=== PATIENT | female | born 1980 | race Caucasian/White ===

== ENCOUNTER 2016-12-03 09:35 | Emergency (ER) | payer MEDICARE, MEDICAID ==
--- NOTE | 2016-12-03 11:29 | UC ---
Throat Pain/Nasal [place] HPI - HPI Summary HPI Summary: "I have Strep throat and lice." Gets Strep frequently so is familiar with symptoms. Terrible ST for 2d along with fever to 102. White spots on tonsils. Her three children are starting with similar symptoms. No cough, no vomiting or diarrhea. No rash. Also has lice. Found numerous live bugs and nits on kids and also herself. Discovered this yesterday. Has had lice at home in past, knows how to treat it. - History of Current Complaint Chief Complaint: UCRespiratory Stated Complaint: SORE THROAT POSS HEAD LICE Time Seen by Provider: 12/03/16 10:41 Hx Obtained From: Patient Hx Last Menstrual Period: this month ?: No Onset/Duration: Gradual Onset, Lasting Days - 2 Severity: Mild Cough: None Associated Signs & Symptoms: Positive: Dysphagia, Hoarseness, Fever. Negative: FB Sensation, Drooling, Wheezing, Sinus Discomfort, Nasal Discharge, Vomiting, Rash - Epiglottits Risk Factors Epiglottis Risk Factors: Negative - Allergies/Home Medications Allergies/Adverse Reactions: Allergies Allergy/AdvReac Type Severity Reaction Status Date / Time No Known Allergies Allergy Verified 12/03/16 10:43 Home Medications: Home Medications PARoxetine HCL TAB* [Paxil TAB*] 50 mg PO DAILY 12/03/16 [History Confirmed ] PMH/Surg Hx/FS Hx/Imm Hx Endocrine History Of: Reports: Thyroid Disease - hypo - Surgical History Surgical History: Yes Surgery Procedure, Year, and Place: tubal ligation - Family History Known Family History: Positive: Respiratory Disease - asthma - Social History Occupation: Employed Full-time Lives: With Family Alcohol Use: Occasionally Substance Use Type: None Smoking Status (MU): Heavy Every Day Tobacco Smoker Type: Cigarettes Amount Used/How Often: 1/4 -1/2 PPD Length of Time of Smoking/Using Tobacco: 14 Years Have You Smoked in the Last Year: Yes - Immunization History Most Recent Influenza Vaccination: Fall 2012 Review of Systems Constitutional: Fever, Chills, Fatigue Skin: Other - head lice Eyes: Negative ENT: Sore Throat Respiratory: Negative Cardiovascular: Negative Gastrointestinal: Negative Genitourinary: Negative Motor: Negative Neurovascular: Negative Musculoskeletal: Negative Neurological: Negative Psychological: Negative All Other Systems Reviewed And Are Negative: Yes Physical Exam Triage Information Reviewed: Yes Appearance: Well-Appearing, No Pain Distress, Well-Nourished Vital Signs: Initial Vital Signs Temp 101 F 12/03/16 10:31 Pulse 92 12/03/16 10:31 Resp 18 12/03/16 10:31 BP 118/76 12/03/16 10:31 Vital Signs Reviewed: Yes Eye Exam: Normal Eyes: Positive: Conjunctiva Clear ENT: Positive: Hearing grossly normal, Pharyngeal erythema, TMs normal, Tonsillar swelling, Tonsillar exudate - moderate, Muffled/hoarse voice - hoarse. Negative: Nasal congestion, Nasal drainage, Trismus Neck exam: Normal Neck: Positive: Supple Respiratory Exam: Normal Respiratory: Positive: Lungs clear Cardiovascular Exam: Normal Musculoskeletal Exam: Normal Neurological Exam: Normal Psychological Exam: Normal Skin Exam: Other - a few nits visible in hair, she says she combed most of them out today Throat Pain/Nasal Course/Dx - Differential Dx/Diagnosis Differential Diagnosis/HQI/PQRI: Pharyngitis, URI Provider Diagnoses: lice; Strep throat Discharge - Discharge Plan Condition: Stable Disposition: HOME Prescriptions: Amoxicillin (*) 875 mg PO BID #20 tab Permethrin & Nit Remover [Nix Complete Lice Treatme 1 & 0.25 %] 1 kit CO ONCE # 1 kit Patient Education Materials: Pediculosis (ED), Strep Throat (ED) Referrals: PENNY Varghese [Primary Care Provider] -
[2016-12-03 11:31] VITALS: BP 134/68
== END 2016-12-03 11:31 | disposition home or self-care (01) ==
LOC: UCCORT 09:35
DX: J02.0 Streptococcal pharyngitis (principal); B85.0 Pediculosis due to Pediculus humanus capitis; F17.210 Nicotine dependence, cigarettes, uncomplicated
CPT/HCPCS: 99212; G0463

== ENCOUNTER 2017-07-07 16:06 | Emergency (ER) | payer MEDICARE, MEDICAID ==
[2017-07-07 17:53] VITALS: BP 114/74
--- NOTE | 2017-07-07 18:07 | UC ---
Respiratory Complaint HPI - HPI Summary HPI Summary: patient has increased SOB, dyspnea for the past week, today it is centered over the left part of her chest, she is a smoker, denies any fever, has increased right ear pain. - History of Current Complaint Chief Complaint: UCRespiratory Stated Complaint: EAR INFECTION/PNEUMONIA Time Seen by Provider: 07/07/17 17:19 Hx Obtained From: Patient Hx Last Menstrual Period: 07/05/17 ?: No Onset/Duration: Sudden Onset, Lasting Days Timing: Constant Severity Initially: Mild Severity Currently: Severe Character: Cough: Productive Aggravating Factors: Allergens, Exertion, Deep Breaths, Recumbent Position Alleviating Factors: Nothing Associated Signs And Symptoms: Positive: Dyspnea, Chills, Wheezing, URI, Nasal Congestion, Sinus Discomfort - Allergies/Home Medications Allergies/Adverse Reactions: Allergies Allergy/AdvReac Type Severity Reaction Status Date / Time No Known Allergies Allergy Verified 07/07/17 17:40 Home Medications: Home Medications Acetaminophen [Acetaminophen Extra Stren] 1,000 mg PO PRN 07/07/17 [History] Penicillin VK 500 MG TAB(NF) [Penicillin VK 500 mg Tab] 1,000 mg PO BID [History Confirmed 07/07/17] PMH/Surg Hx/FS Hx/Imm Hx Previously Healthy: Yes Respiratory History: COPD, Asthma - Surgical History Surgical History: Yes Surgery Procedure, Year, and Place: tubal ligation - Family History Known Family History: Positive: Respiratory Disease - asthma - Social History Alcohol Use: Occasionally Substance Use Type: None Smoking Status (MU): Heavy Every Day Tobacco Smoker Type: Cigarettes Amount Used/How Often: 1/2-1 PPD Length of Time of Smoking/Using Tobacco: since age 15 Have You Smoked in the Last Year: Yes - Immunization History Most Recent Influenza Vaccination: Fall 2012 Review of Systems Skin: Negative Eyes: Negative ENT: Ear Ache Respiratory: Shortness Of Breath, Cough Cardiovascular: Negative Gastrointestinal: Negative Genitourinary: Negative Motor: Negative Neurovascular: Negative Musculoskeletal: Negative Neurological: Negative Psychological: Negative Is Patient Immunocompromised?: No All Other Systems Reviewed And Are Negative: Yes Physical Exam Triage Information Reviewed: Yes Appearance: Well-Nourished, Ill-Appearing, Pain Distress Vital Signs: Initial Vital Signs Temp 98.5 F 07/07/17 17:33 Pulse 101 07/07/17 17:33 Resp 16 07/07/17 17:33 BP 114/74 07/07/17 17:33 Pulse Ox 98 07/07/17 17:33 Vital Signs Reviewed: Yes Eye Exam: Normal ENT: Positive: Pharyngeal erythema, TM bulging Dental Exam: Normal Neck exam: Normal Neck: Positive: Supple, Nontender, No Lymphadenopathy Respiratory: Positive: Respiratory distress - mild, Decreased breath sounds, Wheezing, Inspiration Cardiovascular Exam: Normal Cardiovascular: Positive: No Murmur, Pulses Normal, Tachycardia Abdomen Description: Positive: Nontender, No Organomegaly, Soft Bowel Sounds: Positive: Present Musculoskeletal Exam: Normal Neurological Exam: Normal Neurological: Positive: Alert, Muscle Tone Normal Skin Exam: Normal UC Diagnostic Evaluation - Laboratory O2 Sat by Pulse Oximetry: 98 Respiratory Course/Dx - Course Course Of Treatment: hx obtained, exam performed ,meds reviewed, chest xray ( pneumoniaand EKG obtained (sinus rhythm). Patient is highly anxious do to events going on with her daughter. given a doxy and prescribed. - Differential Dx/Diagnosis Differential Diagnosis/HQI/PQRI: Asthma, Bronchitis, Lower Resp Infection, Pulmonary Embolism, Sinusitis Provider Diagnoses: pnuemonia, LLL Discharge - Discharge Plan Condition: Stable Disposition: HOME Patient Education Materials: Pneumonia (ED) Additional Instructions: 1. take the medication as prescirbed. 2. Increase fluid intake and get plenty of rest 3. i have prescribed a few tablets of atarax to help with the anxiety for bedtime
--- NOTE | 2017-07-07 18:41 | RAD ---
HISTORY: Shortness of breath, dyspnea COMPARISONS: None VIEWS: 4: Frontal dual-energy and lateral views of the chest. FINDINGS: CARDIOMEDIASTINAL SILHOUETTE: The cardiomediastinal silhouette is normal. LESA: The lesa are normal. PLEURA: The costophrenic angles are sharp. No pleural abnormalities are noted. LUNG PARENCHYMA: There is patchy alveolar opacification that localizes to the lingula ABDOMEN: The upper abdomen is clear. There is no subphrenic gas. BONES AND SOFT TISSUES: No bone or soft tissue abnormalities are noted. OTHER: None. IMPRESSION: LINGULAR CONSOLIDATION. RECOMMEND FOLLOW-UP UNTIL RESOLUTION TO EXCLUDE UNDERLYING PULMONARY PARENCHYMAL PATHOLOGY.
[2017-07-07] MEDS ORDERED: DOXYcycline CAP(*) 100 MG PO ONE (19:00)
[2017-07-07] MEDS ORDERED: Albuterol HFA INHALER* 8 gm MDI INH ONE (19:00)
== END 2017-07-07 19:15 | disposition home or self-care (01) ==
LOC: UCCORT 16:06
DX: J18.9 Pneumonia, unspecified organism (principal); H92.01 Otalgia, right ear
CPT/HCPCS: 71020; 93005; 99212; A9270-GY; G0463

== ENCOUNTER 2017-09-19 09:13 | Emergency (ER) | payer MEDICARE, MEDICAID ==
[2017-09-19 09:39] VITALS: BP 114/66
--- NOTE | 2017-09-19 10:56 | UC ---
Respiratory Complaint HPI - HPI Summary HPI Summary: cough x 2 days + nasal congestion , pnd , no fever, no chills - History of Current Complaint Chief Complaint: UCRespiratory Stated Complaint: COUGH, MYLES Time Seen by Provider: 09/19/17 09:59 Hx Obtained From: Patient Hx Last Menstrual Period: 09/09/17 Onset/Duration: Gradual Onset, Lasting Days - 2, Still Present Timing: Constant Severity Initially: Moderate Severity Currently: Moderate Pain Intensity: 0 Pain Scale Used: 0-10 Numeric Character: Cough: Nonproductive Aggravating Factors: Exertion, Deep Breaths Associated Signs And Symptoms: Positive: URI, Nasal Congestion. Negative: Fever , Chills, Dizziness, Calf Pain, Calf Swelling, Edema, Sinus Discomfort - Allergies/Home Medications Allergies/Adverse Reactions: Allergies Allergy/AdvReac Type Severity Reaction Status Date / Time No Known Allergies Allergy Verified 09/19/17 09:32 PMH/Surg Hx/FS Hx/Imm Hx Previously Healthy: Yes - Surgical History Surgical History: Yes Surgery Procedure, Year, and Place: tubal ligation - Family History Known Family History: Positive: Respiratory Disease - asthma - Social History Alcohol Use: None Substance Use Type: None Smoking Status (MU): Current Every Day Smoker Type: Cigarettes Amount Used/How Often: 1/4 -1/2 PPD Length of Time of Smoking/Using Tobacco: 14 Years Have You Smoked in the Last Year: Yes - Immunization History Most Recent Influenza Vaccination: no Review of Systems Constitutional: Negative Skin: Negative Eyes: Negative ENT: Nasal Discharge Respiratory: Cough Cardiovascular: Negative Gastrointestinal: Negative Is Patient Immunocompromised?: No All Other Systems Reviewed And Are Negative: Yes Physical Exam Triage Information Reviewed: Yes Appearance: Well-Appearing, No Pain Distress, Well-Nourished Vital Signs: Initial Vital Signs Temp 96.7 F 09/19/17 09:34 Pulse 87 09/19/17 09:34 Resp 18 09/19/17 09:34 BP 114/66 09/19/17 09:34 Pulse Ox 97 09/19/17 09:34 Vital Signs Reviewed: Yes Eye Exam: Normal Eyes: Positive: Conjunctiva Clear ENT: Positive: Normal ENT inspection, Hearing grossly normal, Nasal drainage Neck exam: Normal Neck: Positive: Supple, Nontender, No Lymphadenopathy Respiratory: Positive: Chest non-tender, Lungs clear, Normal breath sounds Cardiovascular: Positive: RRR, No Murmur, Pulses Normal Abdominal Exam: Normal Abdomen Description: Positive: Nontender, No Organomegaly Bowel Sounds: Positive: Present Musculoskeletal Exam: Normal Skin Exam: Normal UC Diagnostic Evaluation - Laboratory O2 Sat by Pulse Oximetry: 97 Respiratory Course/Dx - Differential Dx/Diagnosis Provider Diagnoses: uri Discharge - Discharge Plan Condition: Stable Disposition: HOME Patient Education Materials: Upper Respiratory Infection (ED) Referrals: Juju Laird PA [Primary Care Provider] - If Needed
== END 2017-09-19 10:53 | disposition home or self-care (01) ==
LOC: UCCORT 09:13
DX: J06.9 Acute upper respiratory infection, unspecified (principal); F17.210 Nicotine dependence, cigarettes, uncomplicated
CPT/HCPCS: 99211; G0463